=== PATIENT | female | born 1950 | race Caucasian/White ===

== ENCOUNTER 2017-03-23 21:24 | Emergency (ER) | payer MEDICARE, BC ==
--- NOTE | 2017-03-23 21:38 | EDM.PDOC ---
ED HPI GENERAL MEDICAL PROBLEM - General Chief Complaint: Bite:Animal, Insect Stated Complaint: GENERAL Time Seen by Provider: 03/23/17 21:38 Source of Information: Reports: Patient History Limitations: Reports: No Limitations - History of Present Illness INITIAL COMMENTS - FREE TEXT/NARRATIVE: Presented to the ER with painful swollen over the dorsal surface of the Left hand following a Cat scratch 3-4 days ago. Denied any cat bite. Reports that she was scratched by her cat few days ago and she did not initially get concerned about it. Has been noticing some erythema and mild swelling around the area and she decided to come to the ER for further evaluation Duration: Day(s): Location: Reports: Upper Extremity, Left Quality: Reports: Ache - Related Data Allergies Allergy/AdvReac Type Severity Reaction Status Date / Time morphine Allergy Bradycardia Verified 03/23/17 21:36 Penicillins Allergy Cannot Verified 03/23/17 21:36 Remember Home Meds: Home Meds Acetaminophen [Tylenol Extra Strength] 500 mg PO PRN 06/23/13 [History] Amiodarone HCl 100 mg PO DAILY 06/23/13 [History] Aspirin/Calcium Carbonate/Mag [Aspirin Buffered 325 mg Tab] 325 mg PO DAILY [History] Cyanocobalamin/FA/Pyridoxine [B Complex-Folic Acid] 1 each PO 06/23/13 [History] Docusate Sodium [Stool Softener] 100 mg PO PRN 06/23/13 [History] Magnesium Oxide 250 mg PO 06/23/13 [History] Metoprolol Tartrate [Lopressor] 25 mg PO BID 06/23/13 [History] Multivitamin [Multi-Vitamin Daily] 1 each PO 06/23/13 [History] Potassium Chloride 20 meq PO BID 06/23/13 [History] Simvastatin 20 mg PO DAILY 06/23/13 [History] Nitroglycerin [Nitrostat] 0.4 mg SL ASDIRECTED PRN #25 tab.subl 06/24/13 [Rx] Amoxicillin/Potassium Clav [Augmentin 875-125 Tablet] 1 each PO BID #14 tablet 03/23/17 [Rx] ED ROS GENERAL - Review of Systems Review Of Systems: ROS reveals no pertinent complaints other than HPI. ED EXAM, ANIMAL BITE - Physical Exam Exam: See Below Exam Limited By: No Limitations General Appearance: Alert, WD/WN, No Apparent Distress Eye Exam: Bilateral Eye: PERRL Ears: Normal External Exam, Normal Canal, Hearing Grossly Normal, Normal TMs Nose: Normal Inspection, Normal Mucosa Throat/Mouth: Normal Inspection, Normal Lips, Normal Oropharynx, Normal Voice Neck: Normal Inspection, Supple, Non-Tender Respiratory/Chest: No Respiratory Distress, Lungs Clear, Normal Breath Sounds Cardiovascular: Normal Peripheral Pulses, Regular Rate, Rhythm, No Edema GI/Abdominal: Normal Bowel Sounds, Soft, Non-Tender, No Organomegaly, No Distention Back Exam: Normal Inspection, Full Range of Motion Extremities: Normal Inspection, Normal Range of Motion, Other (mild erythema over the dorsum of the left hand) Neurological: Alert, Oriented, CN II-XII Intact, Normal Cognition, Normal Gait Psychiatric: Normal Affect, Normal Mood Skin Exam: Normal Color, Warm/Dry Course - Vital Signs Last Recorded V/S: Last Vital Signs Temp 36.9 C 03/23/17 21:45 Pulse 64 03/23/17 21:45 Resp 16 03/23/17 21:45 BP 161/100 H 03/23/17 21:45 Pulse Ox 97 03/23/17 21:45 - Orders/Labs/Meds Meds: Medications Discontinued Medications Generic Name Dose Route Start Last Admin Trade Name Freq PRN Reason Stop Dose Admin Amoxicillin/Clavulanate Potassium 1 tab 03/23/17 21:46 Augmentin 875 Mg/125 Mg PO 03/23/17 21:47 ONETIME ONE Departure - Departure Time of Disposition: 21:54 Disposition: Home, Self-Care 01 Condition: Good Clinical Impression: Cellulitis Qualifiers: Site of cellulitis: extremity Site of cellulitis of extremity: upper extremity Laterality: left Qualified Code(s): L03.114 - Cellulitis of left upper limb - Discharge Information Prescriptions: Amoxicillin/Potassium Clav [Augmentin 875-125 Tablet] 1 each PO BID #14 tablet Instructions: Animal Bite, [id number] Referrals: Ceasar Metzger MD [Primary Care Provider] - Forms: ED Department Discharge Additional Instructions: Follow with PCP Antibiotics as prescribed Return if symptoms worsen Call your Physician or Return to Emergency Department if: * Your condition worsens in any way. * You develop fever greater than 100.4. * You have vomitting that does not stop with medications. * You have pain that is not controlled with medications.
[2017-03-23] MEDS ORDERED: Amoxicillin/Clavulanate K 875-125 MG Tab PO ONE (21:46)
[2017-03-23 22:28] VITALS: BP 135/61
== END 2017-03-23 22:27 | disposition home or self-care (01) ==
LOC: FB.ED 21:24
DX: L03.114 Cellulitis of left upper limb (principal); Z79.82 Long term (current) use of aspirin; Z79.899 Other long term (current) drug therapy; Z88.0 Allergy status to penicillin; Z88.5 Allergy status to narcotic agent
CPT/HCPCS: 99283; A9270